=== PATIENT | female | born 2005 | race Two or more races ===

== ENCOUNTER 2025-03-31 16:13 | Emergency (ER) | payer MEDICAID, SELFPAY ==
[2025-03-31 16:14] VITALS: BMI 22.3
[2025-03-31 17:03] VITALS: BP 114/76; PULSE 66; RESP 18; TEMP 36.7; O2SAT 98
--- NOTE | 2025-03-31 17:21 | EDNOTE_ITS ---
<Statement entered by Diana Woodson MD - 04/01/25 17:49> As co-signing physician, I was present and available for consult prn. I concur with the plan and care as documented by the midlevel provider. ED Allergic Reaction RME/HPI General Chief complaint: Allergic Reaction Stated complaint: ALLERGIC REACTION 30 MINS AGO Time Seen by Provider: 03/31/25 16:26 Source: patient, family, RN notes reviewed and old records reviewed Arrival date/time: 03/31/25 16:13 Mode of arrival: ambulatory Limitations: no limitations RME / HPI RME / HPI narrative: 19yof presents to ED for possible allergic reaction. Patient reports burning sensation to lips/mouth and then spreading to generalized face after taste testing her chili beans with added cayenne pepper. 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 Patient denies tongue/throat swelling, shortness of breath, nausea/vomiting or rash. Prior symptoms now resolved. Denies known food allergies. Related Data Previous Rx's ?Medication ?Instructions ?Recorded diphenhydramine HCl 25 mg capsule 50 mg (2 x 25 mg) PO Q6H PRN 03/31/25 (Allergy Relief (diphenhydramine)) allergy symptoms #2 0 caps Allergies Allergy/AdvReac Type Severity Reaction Status Date / Time No Known Allergies Allergy Unknown Uncoded 03/31/25 16:16 Review of Systems Review of Systems Systems Reviewed: All systems reviewed, normal except as documented Constitutional Constitutional: Denies chills and Denies fever(s) ENT Ears, Nose, Mouth, and Throat: Denies throat swelling and Denies tongue swelling Cardiovascular Cardiovascular: Denies dyspnea Respiratory Respiratory: Denies dyspnea Gastrointestinal Gastrointestinal: Denies nausea and Denies vomiting Integumentary/Breasts Skin/Breast: Denies erythema and Denies rash Allergic/Immunologic Allergic/Immunologic: Denies throat swelling and Denies tongue swelling Past Medical History Surgical History OTHER SURGICAL HX: Denies past surgical history Social History SMOKING STATUS: Never smoker SUBSTANCE USE: does not use ALCOHOL: Never Past Medical History Comments PMH COMMENT: Denies past medical history ED Exam General Limitations: Present no limitations General appearance: Present alert and in no apparent distress Head Head exam: Present atraumatic and normocephalic Eye Eye exam: Present normal appearance, PERRL and EOMI ENT ENT exam: Present normal exam, normal oropharynx (Airway patent) and mucous membranes moist Neck Neck exam: Present normal inspection and full ROM Chest Chest inspection: Present normal inspection and symmetric chest wall rise Respiratory Respiratory exam: Present normal lung sounds bilaterally; Absent respiratory distress, wheezes or stridor Cardiovascular Cardiovascular exam: Present regular rate and normal rhythm Extremities Exam Extremities exam: Present normal inspection and full ROM Neurological Exam Neurological exam: Present alert and oriented X3 Psychiatric Psychiatric exam: Present normal affect and normal mood Skin Skin exam: Present warm, dry, intact and normal color; Absent rash Course Quality Measures none Orders Category Date Time Status DiphenhydrAMINE [Benadryl] Med 03/31/25 17:21 Discontinued 50 mg PO X1 ONE Vital Signs Vital signs: Vital Signs Temperature 98.1 F 03/31/25 17:03 Pulse Rate 66 03/31/25 17:03 Respiratory Rate 18 03/31/25 17:03 Blood Pressure 114/76 03/31/25 17:03 Pulse Oximetry (%) 98 03/31/25 17:03 Oxygen Delivery Method Room Air 03/31/25 17:03 Allergic Reaction MDM Narrative MDM Narrative:: 19yof presents to ED for possible allergic reaction. Patient reports burning sensation to lips/mouth and then spreading to generalized face after taste testing her chili beans with added cayenne pepper. 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 Patient denies tongue/throat swelling, shortness of breath, nausea/vomiting or rash. Prior symptoms now resolved. Denies known food allergies. Patient is well-appearing, no evidence of airway compromise or respiratory d istress. No evidence of anaphylaxis. Will give dose of Benadryl for possible allergic reaction, however, suspect symptoms 2/2 side effect of cayenne pepper ingestion. Stable for discharge, RTED precautions given Patient data External records reviewed:: None (No prior visits) Clinical information provided by:: patient Social determinants that could affect healthcare access:: other (specify) (Poor access to healthcare) Patient has the following chronic illnesses:: None How is presenting disease/condition affected by chronic disease/condition?: no chronic disease Evaluation data The following diagnostics were reviewed and interpreted by me:: other (specify) (None) Lab and/or radiology exams considered but not ordered:: None Interpretation Summary: na Medications / Prescriptions Medications or Prescriptions considered but not ordered:: Prednisone Medication administrations:: Medication Administration History Discontinued Medications Diphenhydramine HCl (Diphenhydramine 25 Mg Capsule) 50 mg PO X1 ONE Stop: 03/31/25 17:22 Last Admin: 03/31/25 17:43 Dose: 50 mg Documented By: Above medication administered in ED Consultations Consultation(s) initiated? (list below): No Diagnosis Differential Diagnosis allergic reaction: anaphylaxis, allergic reaction, angioedema, contact dermatitis and urticaria Most likely diagnosis given after review of the tests above:: Allergic reaction vs food side effect Admission Indicated Admission indicated?: not indicated Admission Request Was there a request for admission?: No Disposition Plan Disposition Plan: Discharge Discharge Attestation Discharge Attestation: The patient and all family members were given an opportunity to ask questions and understood the discharge instructions. Discharge instructions specifically effects, indications for sooner follow up or return to the emergency department, and the expected course of current diagnosis. Patient condition: Stable Discharge Plan Plan Patient Disposition: HOME (Self Care) Patient condition on transfer: Stable Prescriptions/Referrals Prescriptions/Med Rec: New diphenhydramine HCl [Allergy Relief(diphenhydramin)] 25 mg capsule 50 mg PO Q6H PRN (Reason: allergy symptoms) Qty: 20 0RF Problem List Clinical Impression: Allergic reaction Patient/Caregiver Discharge Instructions Education Materials: ED Food Allergy Print Language: [place] Stand Alone Forms: Jackelin Award Info., Patient Portal Info Letter PA/MANA Supervising Physician JESUS/MANA Supervising Physician: Kandice
== END 2025-03-31 18:23 | disposition home or self-care (01) ==
PROVIDERS: Emergency Provider Emergency Medicine; PCP Nurse Practitioner Family
DX: T78.19XA Other adverse food reactions, not elsewhere classified, initial encounter (principal); R20.8 Other disturbances of skin sensation; X58.XXXA Exposure to other specified factors, initial encounter
CPT/HCPCS: 99281; A9270